=== PATIENT | male | born 1965 ===

== ENCOUNTER → 2018-05-24 21:05 | Outpatient (REF) | payer OTHER, SELFPAY ==
[2018-05-24 22:20] LABS: Hemoglobin A1C% w Est Avg Glu 5.3 % (4.0-6.0)
[2018-05-24 22:35] LABS: Free T4, Direct Thyroxine 0.98 ng/dL (0.78-2.19)
[2018-05-24 22:49] LABS: Thyroid Stimulating Hormone 1.14 uIU/mL (0.47-4.68)
[2018-05-28 13:54] LABS: Anti Thyroglobulin Antibody 41 IU/mL (< 2); Thyroid Peroxidase Antibodies 13 IU/mL (< 9)
[2018-05-28 14:03] LABS: PSA Total 0.75 ng/mL (< 4.01)
== END ==
LOC: LAB 21:05
PROVIDERS: Visit Provider Naturopath
DX: R35.8 Other polyuria (principal); R63.5 Abnormal weight gain; M51.16 Intervertebral disc disorders with radiculopathy, lumbar region; E06.3 Autoimmune thyroiditis; R53.83 Other fatigue
CPT/HCPCS: 82728; 83036; 84153; 84154; 84439; 84443; 84481; 86376; 86800

== ENCOUNTER → 2018-06-21 22:03 | Outpatient (REF) | payer OTHER, SELFPAY ==
[2018-06-21 22:09] LABS: Add Manual Diff / Slide Review NO; Basophils Percent Auto 0.4 % (0-2); Hematocrit 53.4 % (41-53); Hemoglobin 18.2 g/dL (13.5-17.5); Lymphocytes Percent Auto 31.9 % (25-40); Mean Corpuscular Hemoglobin 31.7 PG (26-34); Mean Corpuscular Volume 93.1 fL (80-100); Monocytes Percent Auto 8.6 % (3-14); Neutrophils Absolute Auto 4100 /uL (3000-5900); Neutrophils Percent Auto 58.1 % (50-75); Platelet Count 284 X10^3/uL (150-400); Red Blood Cell Count 5.74 X10^6/uL (4.5-5.9); Red Cell Distribution Width 13.4 % (11.6-14.8)
[2018-06-21 22:17] LABS: Alanine Aminotransferase 43 IU/L (21-72); Albumin 4.9 g/dL (3.5-5.0); Albumin Globulin Ratio 1.5 (1.0-2.8); Alkaline Phosphatase 65 U/L (38-126); Aspartate Aminotransferase 40 IU/L (17-59); Bilirubin Total 1.2 mg/dL (0.2-1.3); Blood Urea Nitrogen 26 mg/dL (9-20); C-Reactive Protein Quant < 0.5 mg/dL (<1.0); Calcium 9.8 mg/dL (8.4-10.2); Carbon Dioxide 29 mmol/L (22-32); Chloride 99 mmol/L (98-107); Estimated Glomerular Filt Rate > 60.0 mL/min (>60); Globulin 3.2 g/dL (1.7-4.1); Glucose 78 mg/dL (70-100); HEMOLYSIS < 15 (0-50); Potassium 4.6 mmol/L (3.4-5.1); Sodium 142 mmol/L (137-145); Total Protein 8.1 g/dL (6.3-8.2); Uric Acid 6.4 mg/dL (3.5-8.5)
== END ==
LOC: LAB 22:03
PROVIDERS: Visit Provider Naturopath
DX: M25.542 Pain in joints of left hand (principal)
CPT/HCPCS: 80053; 84550; 85025; 86140

== ENCOUNTER → 2018-07-26 23:26 | Outpatient (REF) | payer OTHER, SELFPAY ==
[2018-07-27 03:37] LABS: Add Manual Diff / Slide Review NO; Basophils Absolute Auto 0 /uL (0-100); Basophils Percent Auto 0.7 % (0-2); Eosinophils Absolute Auto 100 /uL (0-450); Eosinophils Percent Auto 0.8 % (2-4); Hematocrit 52.6 % (41-53); Hemoglobin 18.1 g/dL (13.5-17.5); Lymphocytes Absolute Auto 2200 /uL (1100-4500); Lymphocytes Percent Auto 32.1 % (25-40); Mean Corpuscular HGB Conc 34.4 % (30-36); Mean Corpuscular Hemoglobin 31.8 PG (26-34); Mean Corpuscular Volume 92.5 fL (80-100); Monocytes Absolute Auto 600 /uL (0-900); Monocytes Percent Auto 8.7 % (3-14); Neutrophils Absolute Auto 4000 /uL (1500-7000); Neutrophils Percent Auto 57.7 % (50-75); Platelet Count 284 X10^3/uL (150-400); Red Blood Cell Count 5.69 X10^6/uL (4.5-5.9); Red Cell Distribution Width 13.5 % (11.6-14.8)
[2018-07-30 13:56] LABS: Sex Hormone Binding Globulin 27 nmol/L (10-50)
[2018-07-30 14:49] LABS: PSA Total 0.65 ng/mL (< 4.01)
[2018-08-01 21:53] LABS: Estradiol 49 pg/mL (< 40)
[2018-08-07 13:44] LABS: Testosterone Free 189.6; Testosterone Total 914
== END ==
LOC: LAB 23:26
PROVIDERS: Visit Provider Naturopath
DX: E29.1 Testicular hypofunction (principal)
CPT/HCPCS: 36415; 82670; 84153; 84154; 84270; 84402; 84403; 85025

== ENCOUNTER → 2018-11-29 21:14 | Outpatient (ROUT) | payer OTHER, SELFPAY ==
[2018-11-30] LABS: Add Manual Diff / Slide Review NO; Basophils Absolute Auto 0 /uL (0-100); Basophils Percent Auto 0.5 % (0-2); Eosinophils Absolute Auto 0 /uL (0-450); Eosinophils Percent Auto 0.6 % (2-4); Hematocrit 51.9 % (41-53); Hemoglobin 17.7 g/dL (13.5-17.5); Lymphocytes Absolute Auto 2100 /uL (1100-4500); Lymphocytes Percent Auto 26.6 % (25-40); Mean Corpuscular HGB Conc 34.2 % (30-36); Mean Corpuscular Hemoglobin 31.9 PG (26-34); Mean Corpuscular Volume 93.3 fL (80-100); Monocytes Absolute Auto 600 /uL (0-900); Monocytes Percent Auto 7.5 % (3-14); Neutrophils Absolute Auto 5200 /uL (1500-7000); Neutrophils Percent Auto 64.8 % (50-75); Platelet Count 284 X10^3/uL (150-400); Red Blood Cell Count 5.56 X10^6/uL (4.5-5.9); Red Cell Distribution Width 13.8 % (11.6-14.8)
[2018-11-30 01:24] LABS: Estradiol, Total 45.3 pg/mL
[2018-12-03 14:31] LABS: PSA Total 0.72 ng/mL (< 4.01)
[2018-12-06 09:47] LABS: Testosterone,Free 18.9
[2018-12-06 09:48] LABS: Sex Hormone Binding Globulin 32.7
== END ==
PROVIDERS: Visit Provider Naturopath
DX: M51.16 Intervertebral disc disorders with radiculopathy, lumbar region (principal); G43.101 Migraine with aura, not intractable, with status migrainosus; E29.1 Testicular hypofunction
CPT/HCPCS: 36415; 82670; 84153; 84154; 84270; 84402; 84403; 85025